=== PATIENT | male | born 1980 | race Caucasian/White ===

== ENCOUNTER 2020-05-11 16:15 | Emergency (ER) | payer MEDICAID ==
[~2020-05-11] VITALS: Ht 157.5 cm; Wt 95.0 kg
[2020-05-11] MEDS ORDERED: MORPHINE SULFATE 4 MG/ML CPJ (NOT FOR IM USE) IV STA (16:33)
[2020-05-11] MEDS ORDERED: ONDANSETRON HCL 4MG/2ML INJ IV STA (16:33)
[2020-05-11] MEDS ORDERED: SODIUM CHLORIDE 0.9% 1,000 ML IV ONE (16:45)
[2020-05-11] MEDS ORDERED: CEFAZOLIN 1000MG PREMIX 50 ML IV ONE (16:45)
[2020-05-11] MEDS ORDERED: TETANUS, DIPHTHERIA, PERTUSSIS VAC/PF 0.5ML (>7YR OLD) IM ONE (16:45)
[2020-05-11 17:16] LABS: BASOPHILS % 0.5 % (0.0-2.0); EOSINOPHILS % 0.8 % (0.0-5.0); HEMATOCRIT. 40.8 % (42.0-52.0); HEMOGLOBIN. 13.5 g/dL (14.0-18.0); LYMPHOCYTES % 18.1 % (20.0-50.0); MEAN CORPUSCULAR VOLUME 84.9 fL (80.0-94.0); MEAN PLATELET VOLUME 8.1 fl (7.4-10.4); MONOCYTES % 6.8 % (2.0-8.0); NEUTROPHILS % 73.8 % (40.0-76.0); PLATELET 304 x1000/uL (130-400); RED CELL DISTRIBUTION WIDTH 13.3 % (11.6-14.6)
[2020-05-11 17:24] LABS: CHLORIDE 107 mEq/L (98-107)
[2020-05-11 17:27] LABS: PARTIAL THROMBOPLASTIN TIME 21.1 sec (23.4-31.0); PROTHROMBIN TIME 10.4 sec (9.6-11.0)
[2020-05-11] MEDS ORDERED: LIDOCAINE HCL/PF 1% 10 MG/ML 5ML VIAL IJ ONE (18:30)
[2020-05-11] MEDS ORDERED: BACITRACIN ZINC OINT UDPKT TOP ONE (18:30)
[2020-05-11] MEDS ORDERED: CEPH500C2 MT (20:26)
[2020-05-11] MEDS ORDERED: HYDR-4346 MT (20:26)
[2020-05-11] MEDS ORDERED: MORPHINE SULFATE 4 MG/ML CPJ (NOT FOR IM USE) IV ONE (21:15)
[2020-05-11] MEDS ORDERED: ONDANSETRON HCL 4MG/2ML INJ IV ONE (21:15)
[2020-05-11 22:56] VITALS: BP 115/66
== END 2020-05-11 23:03 | disposition home or self-care (01) ==
LOC: ER 16:15
DX: S61.211A Laceration without foreign body of left index finger without damage to nail, initial encounter (principal); W26.8XXA Contact with other sharp object(s), not elsewhere classified, initial encounter; Y93.89 Activity, other specified; Y92.9 Unspecified place or not applicable
CPT/HCPCS: 12002; 36415; 73130; 80053; 85025; 90471; 90715; 93005; 96365; 96375; 96376; 99285; J0690; J2270; J2405; J3490; J7030